=== PATIENT | male | born 1990 | race Caucasian/White ===

== ENCOUNTER 2016-11-03 13:00 | Emergency (ER) | payer SELFPAY ==
[~2016-11-03] VITALS: Ht 177.8 cm; Wt 69.0 kg
[~2016-11-03 13:00] MED LIST: DOCU1CAP39 PO; MILKSUS PO; OXYC1TAB63 PO
[2016-11-03 13:01] VITALS: BP 109/74; PULSE 84; RESP 15; TEMP 98.1; O2SAT 98
[2016-11-03] MEDS ORDERED: LIDOCAINE 1%/EPINEPHrine 1:100,000 SOLN 20 ML VIAL INFIL ONE (13:30)
[2016-11-03] MEDS ORDERED: DICL75TA PO (13:42)
[2016-11-03] MEDS ORDERED: BACT800T5 PO (13:42)
--- NOTE | 2016-11-03 13:46 | PD ---
HPI Chief Complaint: Skin Problem Time Seen by Provider: 13:42 Travel History International Travel<30 days: No Contact w/Intl Traveler<30days: No Traveled to known affect area: No History of Present Illness HPI 25-year-old male that presents to the ED for evaluation of lump to his left face. Patient has had this for about 3 days now. Per patient he initially drained some but he continues to get bigger and painful. He denies any history of MRSA or IV drug abuse. He states having symptoms like this before. No chest pain or shortness of breath. Denies any fevers chills or sweats. He has not seen anybody for this. He is not taking anything for this. States that the pain is 4 out of 10 with touch. Otherwise he has no pain. Denies any dental injuries. No recent travel. PFSH Past Medical History Cardiovascular Problems: No Diminished Hearing: No Genitourinary: No Musculoskeletal: No Neurologic: No Psychiatric: No Reproductive: No Respiratory: No Tetanus Vaccination: < 5 Years Influenza Vaccination: No Past Surgical History Surgical History: No Previous Surgery Social History Alcohol Use: No Tobacco Use: Yes (1/2 PACK PER DAY) Substance Use: No Allergies-Medications (Allergen,Severity, Reaction): Coded Allergies: No Known Allergies (Unverified , 11/03/16) Reported Meds & Prescriptions Reported Meds & Active Scripts Active No Active Prescriptions or Reported Medications Review of Systems Except as stated in HPI: all other systems reviewed are Neg Physical Exam Narrative GENERAL: SKIN: Warm and dry. Patient has a very small about 2 cm in diameter induration on the left face. Patient appears to have a head of the abscess as well. Purulence noted. No lymphadenopathy noted. Tender to touch. HEAD: Atraumatic. Normocephalic. EYES: Pupils equal and round. No scleral icterus. No injection or drainage. ENT: No nasal bleeding or discharge. Mucous membranes pink and moist. Tongue is midline. No uvula deviation. NECK: Trachea midline. No JVD. CARDIOVASCULAR: Regular rate and rhythm. RESPIRATORY: No accessory muscle use. Clear to auscultation. Breath sounds equal bilaterally. GASTROINTESTINAL: Abdomen soft, non-tender, nondistended. Hepatic and splenic margins not palpable. MUSCULOSKELETAL: Extremities without clubbing, cyanosis, or edema. No obvious deformities. NEUROLOGICAL: Awake and alert. No obvious cranial nerve deficits. Motor grossly within normal limits. Five out of 5 muscle strength in the arms and legs. Normal speech. PSYCHIATRIC: Appropriate mood and affect; insight and judgment normal. Data Data Last Documented VS Vital Signs Date Time Temp Pulse Resp B/P Pulse Ox O2 Delivery O2 Flow Rate FiO2 11/03/16 13:20 17 11/03/16 13:01 98.1 84 109/74 98 Orders Wound Culture And Gram Stain (11/03/16 13:22) Wound Care (11/03/16 13:22) Lidocai-Epi 1%-1:100,000 Inj (Xylocaine- (11/03/16 13:30) MDM Medical Decision Making Medical Screen Exam Complete: Yes Emergency Medical Condition: Yes Medical Record Reviewed: Yes Differential Diagnosis Abscess versus cellulitis versus infected hair Narrative Course 25-year-old male that presents to the ED for evaluation of abscess. Patient was properly examined and was found to have signs and symptoms consistent appears to be a small abscess. After explained procedure to the patient and he agreed to it abscess was incised and drained as stated in procedure note. Patient had culture done. Patient will be sent home with prescription for diclofenac sodium and Bactrim. Told to follow with PCP. Ice or warm compresses. See ED worsening symptoms. Procedures Procedure Narrative After the risks and benefits were discussed the following procedure was performed: INCISION AND DRAINAGE OF ABSCESS: The area was prepped and was sterilely draped. A subcutaneous wheal of 1 % Xylocaine with a total number 4 mL was used to anesthetize the area. The area was properly anesthetized. A number 11 scalpel was used to make a 1 -cm incision across the area of the abscess. Cultures were obtained. The abscess was drained an irrigated with normal saline. Sterile dressing applied. Diagnosis Primary Impression: Abscess Patient Instructions: General Instructions Additional Instructions: Take medication as prescribed. Follow-up with PCP. See ED for worsening symptoms. Ice or warm compresses as needed. Med/Other Pt SpecificInfo: Prescription(s) given Scripts Diclofenac Sodium DR 75 Mg Tabdr75 Mg PO BID PRN (PAIN SCALE 1 TO 10) #20 TAB Prov:Angela Bar MD 11/03/16 Sulfamethoxazole-Trimethoprim (Bactrim DS)800-160 Mg Tab1 Tab PO BID 10 Days Prov:Angela Bar MD 11/03/16 Disposition: 01 DISCHARGE HOME Condition: Stable Riaz Cooley Nov 03, 2016 13:46
[2016-11-03 13:50] VITALS: BP 110/74; TEMP 97.8
== END 2016-11-03 13:51 | disposition home or self-care (01) ==
LOC: NEPD 13:00
DX: L02.01 Cutaneous abscess of face (principal); B95.62 Methicillin resistant Staphylococcus aureus infection as the cause of diseases classified elsewhere; F17.200 Nicotine dependence, unspecified, uncomplicated
CPT/HCPCS: 10060; 86403; 87070; 87186

== ENCOUNTER 2017-08-03 18:01 | Emergency (ER) | payer BC ==
[~2017-08-03 18:01] MED LIST changes: +BACT800T5 PO; +DICL75TA PO; -DOCU1CAP39 PO; -MILKSUS PO; -OXYC1TAB63 PO
[2017-08-03 18:03] VITALS: BP 158/67; PULSE 107; RESP 18; TEMP 97.9; O2SAT 96
--- NOTE | 2017-08-03 18:37 | PD ---
HPI Chief Complaint: Cold / Flu Symptoms Time Seen by Provider: 18:26 Travel History International Travel<30 days: No Contact w/Intl Traveler<30days: No Traveled to known affect area: No History of Present Illness HPI 26-year-old male presents to the ED for evaluation of 3 day history of sore throat, subjective fevers, sinus congestion, cough occasionally productive of "green stuff." He has not measured a fever at home. He endorses decreased appetite secondary to throat pain. He endorses body aches. He rates the pain 9 /10, constant, no alleviating or exacerbating factors reported. Current smoker. He denies ear pain or dull hearing. Denies history of environmental/ seasonal allergies. He denies sick contacts. He did not receive this years flu vaccine. He treated at home with Mucinex no improvement in symptoms. PFSH Past Medical History Cardiovascular Problems: No Diminished Hearing: No Genitourinary: No Musculoskeletal: No Neurologic: No Psychiatric: No Reproductive: No Respiratory: No Social History Alcohol Use: No Tobacco Use: Yes (1/2 PACK PER DAY) Substance Use: No Allergies-Medications (Allergen,Severity, Reaction): Coded Allergies: *MDRO Multi-Drug Resistant Organism (Verified Adverse Reaction, Unknown, ) MRSA (face wound) - 11/03/16 Reported Meds & Prescriptions Reported Meds & Active Scripts Active No Active Prescriptions or Reported Medications Review of Systems Except as stated in HPI: all other systems reviewed are Neg Physical Exam Narrative GENERAL: Well-nourished, well-developed nontoxic appearing white male in no acute distress. SKIN: Warm and dry. HEAD: Normocephalic. Atraumatic. EYES: No scleral icterus. No injection or drainage. PERRLA. EOMI. ENT: Pearly joseph tympanic membranes bilaterally. Serous effusion bilaterally. Nasal mucosa is moist. Oropharynx without erythema, edema or exudate. NECK: Supple, trachea midline. No JVD or lymphadenopathy. CARDIOVASCULAR: Regular rate and rhythm without murmurs, gallops, or rubs. RESPIRATORY: Breath sounds clear and equal bilaterally. No accessory muscle use. GASTROINTESTINAL: Abdomen soft, non-tender, nondistended. + Bowel sounds MUSCULOSKELETAL: No cyanosis, or edema. BACK: Nontender without obvious deformity. No CVA tenderness. Data Data Last Documented VS Vital Signs Date Time Temp Pulse Resp B/P (MAP) Pulse Ox O2 Delivery O2 Flow Rate FiO2 08/03/17 19:03 08/03/17 18:59 98.3 95 20 96 Room Air Orders Orders Influenzae A/B Antigen (08/03/17 18:10) Ibuprofen (Motrin) (08/03/17 19:00) Ed Discharge Order (08/03/17 18:47) MDM Medical Decision Making Medical Screen Exam Complete: Yes Emergency Medical Condition: Yes Differential Diagnosis Viral syndrome versus influenza versus pharyngitis versus strep pharyngitis versus others Narrative Course 26-year-old male presents to the ED for evaluation of 3 day history of sore throat, subjective fevers, sinus congestion, cough occasionally productive of "green stuff." He has not measured a fever at home. He endorses decreased appetite secondary to throat pain. He endorses body aches. Current smoker. He did not receive this years flu vaccine. Patient afebrile, tachycardic on presentation. Physical exam reveals an ill-appearing white male in no acute distress. ENT exam is unremarkable chest CTA be. He is administered 600 mg ibuprofen by mouth. Flu swab positive. Unfortunately the patient is beyond the 48 hour window for Tamiflu. He is instructed to continue with OTC symptomatic treatment, drink fluids. We discussed reasons to return to the ED. He indicated understanding of the instructions and is agreeable to the care plan. He is stable and discharged home. Diagnosis Primary Impression: Influenza A Referrals: [facility] Patient Instructions: General Instructions, Influenza (ED) Departure Forms: Tests/Procedures, Work Release Enter return to work date: Aug 07, 2017 Additional Instructions: Rest, hydrate. Push fluids such as sports drinks, Pedialyte, popsicles, clear broth. Continue with symptomatic treatment with OTC medications. An OTC medication containing a decongestant such as Mucinex D may help to improve your symptoms. An OTC medication called Oscillococcinum may help to reduce the duration of your symptoms. Alternating ibuprofen and Tylenol every 4-6 hours as needed for continued fever. Increase handwashing frequently to avoid the spread of the virus to other family members and the community. Disinfect commonly touched surfaces such as light switches, microwaves, remote controls. Replace toothbrush at the end of this illness. Follow-up with the primary care provider. Return to the ED for WORSENING SYMPTOMS or for any urgent or emergent medical condition. Scripts No Active Prescriptions or Reported Meds Disposition: 01 DISCHARGE HOME Condition: Stable Enedina Collado Aug 03, 2017 18:37
[2017-08-03 18:59] VITALS: BP 131/84; PULSE 95; RESP 20; TEMP 98.3; O2SAT 96
[2017-08-03] MEDS ORDERED: IBUPROFEN 600 MG TAB PO ONE (19:00)
== END 2017-08-03 19:12 | disposition home or self-care (01) ==
LOC: PHEFT 18:01
DX: J10.1 Influenza due to other identified influenza virus with other respiratory manifestations (principal); J02.9 Acute pharyngitis, unspecified; F17.210 Nicotine dependence, cigarettes, uncomplicated
CPT/HCPCS: 87804; 99282